=== PATIENT | male | born 1955 | race Caucasian/White ===

== ENCOUNTER 2020-07-04 08:37 | Outpatient (CLI) | payer OTHER ==
[~2020-07-04 08:37] MED LIST: CEFADROXIL500 MG PO; CLONAZEPAM0.125 MG/T PO; PERCOCET 5/3251 TAB PO; RYBIX ODT50 MG PO; SERAQUEL PO; XARELTO10 MG PO
== END 2020-07-04 08:49 | disposition home or self-care (01) ==
LOC: NUCLEAR 08:37
PROVIDERS: ATTEND Internal Medicine Cardiovascular Disease
DX: R00.2 Palpitations (principal)